=== PATIENT | female | born 1955 | race Caucasian/White ===

== ENCOUNTER → 2022-07-03 08:39 | Outpatient (CLI) | payer OTHER, SELFPAY ==
[2022-07-03 10:41] LABS: COVID19 -Nasal RAPID Negative (Negative)
--- NOTE | 2022-07-03 21:51 | DI.NM.S_ITS ---
DATE OF SERVICE: 07/03/2022 PROCEDURE: Exercise perfusion study. INDICATION: Chest tightness with elevated blood pressure. RADIOPHARMACEUTICAL: 25.8 millicurie technetium-99m Myoview IV was injected at stress and 12.5 millicurie technetium-99m Myoview IV was injected at rest. CARDIAC STRESS: The patient underwent exercise perfusion study under the supervision of an attending staff. She walked on [place] protocol for 10 minutes and 01 seconds, achieved 97 percent of target heart rate. Resting blood pressure 102/74 mmHg. Peak blood pressure 170/82 mmHg. Achieved 12.8 METs of workload. MARY -43 percent. Baseline rhythm was sinus. During stress, no convincing ischemic changes seen. Occasional PVCs. No chest discomfort. Had some shortness of breath. RAW DATA: Breast shadow was seen. There is increased subdiaphragmatic activity, as well. GATED STUDY: Resting LV ejection fraction 73 and stress LV ejection fraction 86 percent. No obvious wall motion abnormalities. Resting end-diastolic volume 74 mL. TID ratio 0.86, which is within normal limits. Lung/heart ratio 0.25, which is within normal limits. MYOCARDIAL PERFUSION SCAN: Stress supine, resting supine and stress prone images were compared to each other. Stress and resting supine images revealed moderate-size, moderately decreased perfusion of anterior wall extending into the anteroapex, which got significantly improved during stress prone images, suggestive of breast tissue attenuation artifact. No convincing ischemia or infarction. Anterior wall and apex moving well. CONCLUSION: I will call this study likely a normal myocardial perfusion study with evidence of breast tissue attenuation artifact, which got improved during stress prone images. Excellent exercise tolerance. Achieved 12.8 metabolic equivalents of workload. Functional aerobic impairment -43 percent. Normal hemodynamic response. No complex arrhythmias. No anginal symptoms. Overall, low-risk myocardial perfusion scan. Soledad Sanchez - GAVIN/flo/rajni doc#: [id number]/job#: [id number] dd: 07/03/2022 17:03:00 dt: 07/03/2022 21:28:00 DICTATING MD/COPIES TO: Susanne Hammond MD COPIES MNE: MARIYA;
== END ==
PROVIDERS: PCP Physician Assistant; Referring Provider Physician Assistant; Visit Provider Physician Assistant
DX: R07.89 Other chest pain (principal); R03.0 Elevated blood-pressure reading, without diagnosis of hypertension; Z20.822 Contact with and (suspected) exposure to COVID-19
CPT/HCPCS: 78452; 87635; 93017; A9502